=== PATIENT | female | born 1995 | race American Indian/Alaskan Native ===

== ENCOUNTER 2022-03-01 03:51 | Emergency (ER) | payer MEDICAID ==
[2022-03-01] MEDS ORDERED: SODIUM CHLORIDE 0.9% 1000 ML 1,000 ML IV ONE ×2 (04:30→04:31)
[2022-03-01 04:52] LABS: Bilirubin,Urine NEG (Negative); Blood,Urine NEG (Negative); Color,Urine Yellow (Yellow); Mucus,Urine FEW /HPF; Protein,Urine <15 mg/dL mg/dL (Negative); Urobilinogen,Urine < 2.0 mg/dL (<2.0)
[2022-03-01 04:57] LABS: HCG Qualitative,Urine Negative (Negative)
[2022-03-01 04:59] LABS: Basophils % (Auto) 0.5 % (0.0-1.8); Eosinophils % (Auto) 0.6 % (0.0-4.3); Hematocrit 34.9 % (30.3-42.9); Hemoglobin 11.6 gm/dl (10.1-14.3); Lymphocytes # (Auto) 1.4 K/mm3 (1.2-5.4); Lymphocytes % (Auto) 35.5 % (13.4-35.0); Mean Corpuscular HGB Conc 33 % (30-34); Mean Corpuscular Volume 88 fl (79-97); Monocytes # (Auto) 0.4 K/mm3 (0.0-0.8); Monocytes % (Auto) 10.2 % (0.0-7.3); Platelet Count 201 K/mm3 (140-440); Red Blood Count 3.99 M/mm3 (3.65-5.03); Red Cell Distribution Width 13.7 % (13.2-15.2)
[2022-03-01 05:08] LABS: Amphetamine Screen,Urine PRESUMPTIVE NEGATIVE; Benzodiazepines Screen,Urine PRESUMPTIVE NEGATIVE; Cannabinoid Screen,Urine PRESUMPTIVE POSITIVE; Cocaine Screen,Urine PRESUMPTIVE NEGATIVE; Methadone Screen,Urine PRESUMPTIVE NEGATIVE; Opiate Screen,Urine PRESUMPTIVE NEGATIVE
[2022-03-01 05:17] LABS: Alanine Aminotransferase 9 units/L (7-56); Blood Urea Nitrogen 7 mg/dL (7-17); Calcium 8.3 mg/dL (8.4-10.2); Hemolysis Index 20
[2022-03-01 05:29] LABS: BUN/Creatinine Ratio 10
--- NOTE | 2022-03-01 05:37 | Emergency Department Report ---
ED General Adult HPI - General Chief complaint: Seizure Stated complaint: POSSIBLE SEIZURE Time Seen by Provider: 03/01/22 04:25 Source: patient, EMS Mode of arrival: Stretcher Limitations: No Limitations - History of Present Illness Initial comments: pt has history of asthma worke up shaking , no ehad injury no incontinence no LOC , no history of seizure Severity scale (0 -10): 5 - Related Data Allergies Allergy/AdvReac Type Severity Reaction Status Date / Time No Known Allergies Allergy Unverified 03/01/22 04:19 ED Review of Systems ROS: Stated complaint: POSSIBLE SEIZURE Other details as noted in HPI Constitutional: denies: chills, fever Eyes: denies: eye pain, eye discharge, vision change ENT: denies: ear pain, throat pain Respiratory: denies: cough, shortness of breath, wheezing Cardiovascular: denies: chest pain, palpitations Endocrine: no symptoms reported Gastrointestinal: denies: abdominal pain, nausea, diarrhea Genitourinary: denies: urgency, dysuria, discharge Musculoskeletal: denies: back pain, joint swelling, arthralgia Skin: denies: rash, lesions Neurological: denies: headache, weakness, paresthesias Psychiatric: denies: anxiety, depression Hematological/Lymphatic: denies: easy bleeding, easy bruising ED Past Medical Hx - Past Medical History Previous Medical History?: No Hx Hypertension: No Hx CVA: No - Social History Smoking Status: Unknown if ever smoked Substance Use Type: None ED Physical Exam - General Limitations: No Limitations General appearance: alert, in no apparent distress - Head Head exam: Present: atraumatic, normocephalic - Eye Eye exam: Present: normal appearance - ENT ENT exam: Present: mucous membranes moist - Neck Neck exam: Present: normal inspection - Respiratory Respiratory exam: Present: normal lung sounds bilaterally. Absent: respiratory distress - Cardiovascular Cardiovascular Exam: Present: regular rate, normal rhythm. Absent: systolic murmur, diastolic murmur, rubs, gallop - GI/Abdominal GI/Abdominal exam: Present: soft, normal bowel sounds - Extremities Exam Extremities exam: Present: normal inspection - Back Exam Back exam: Present: normal inspection - Neurological Exam Neurological exam: Present: alert, oriented X3 - Psychiatric Psychiatric exam: Present: normal affect, normal mood - Skin Skin exam: Present: warm, dry, intact, normal color. Absent: rash ED Course Vital Signs 03/01/22 03/01/22 04:58 05:00 Temperature 98.1 F 98.0 F Pulse Rate 97 H 97 H Respiratory 14 15 Rate Blood Pressure 107/55 Blood Pressure 107/58 [Right] O2 Sat by Pulse 97 97 Oximetry ED Medical Decision Making - Lab Data Result diagrams: 03/01/22 04:45 03/01/22 04:45 - Radiology Data Radiology results: report reviewed Critical care attestation.: If time is entered above; I have spent that time in minutes in the direct care of this critically ill patient, excluding procedure time. ED Disposition Clinical Impression: Shaking, Observed seizure-like activity Disposition: 01 HOME / SELF CARE / HOMELESS Is pt being admited?: No Does the pt Need Aspirin: No Condition: Stable Instructions: Tremor, Seizure, Adult
[2022-03-01 06:49] VITALS: BP 101/60
== END 2022-03-01 06:57 | disposition home or self-care (01) ==
LOC: ED 03:51
DX: R56.9 Unspecified convulsions (principal); R25.1 Tremor, unspecified; Z79.899 Other long term (current) drug therapy
CPT/HCPCS: 36415; 80053; 80307; 81001; 81025; 82550; 85025; 87086; 99283; 99284

== ENCOUNTER 2022-04-12 04:42 | Emergency (ER) | payer MEDICAID ==
[2022-04-12] MEDS ORDERED: levETIRAcetam 1000 MG/NS 0.75% 1,000 MG/100 ML BAG IV ONE (09:09)
[2022-04-12] MEDS ORDERED: SODIUM CHLORIDE 0.9% 1000 ML 1,000 ML IV ONE (09:11)
--- NOTE | 2022-04-12 09:11 | Emergency Department Report ---
ED Seizure HPI - General Chief Complaint: Seizure Stated Complaint: SEIZURES Time Seen by Provider: 04/12/22 08:59 Source: patient Mode of arrival: Ambulatory Limitations: No Limitations - History of Present Illness Initial Comments: Patient is 27 years old female with history of seizure on Keppra, noncompliant with her medication. Patient presented to the ER for evaluation of seizure. Patient stated that she had 5 seizure yesterday. Patient denied any head injury or any other injuries. She also denied any fever, headache, neck pain, shortness of breath, nausea or vomiting. Patient is alert, oriented x3 with a GCS of 15. MD Complaint: seizure -: Last night Description of Episode: loss of consciousness, tonic-clonic movement, bladder incontinence, post-event confusion Seizure History: known seizure disorder Place: home Treatments Prior to Arrival: none - Related Data Allergies Allergy/AdvReac Type Severity Reaction Status Date / Time No Known Allergies Allergy Unverified 03/01/22 04:19 ED Review of Systems ROS: Stated complaint: SEIZURES Other details as noted in HPI Comment: All other systems reviewed and negative Constitutional: denies: chills, fever Respiratory: denies: cough, shortness of breath, SOB with exertion Cardiovascular: denies: chest pain, palpitations Gastrointestinal: denies: abdominal pain, nausea, vomiting, diarrhea, constipation, hematemesis, melena, hematochezia Musculoskeletal: denies: back pain Neurological: denies: headache, weakness, numbness, paresthesias ED Past Medical Hx - Past Medical History Hx Hypertension: No Hx CVA: No - Social History Smoking Status: Never Smoker ED Physical Exam - General Limitations: No Limitations General appearance: alert, in no apparent distress - Head Head exam: Present: atraumatic, normocephalic, normal inspection - Eye Eye exam: Present: normal appearance - ENT ENT exam: Present: normal exam, normal orophraynx, mucous membranes moist - Neck Neck exam: Present: normal inspection, full ROM. Absent: tenderness, meningismus - Respiratory Respiratory exam: Present: normal lung sounds bilaterally - Cardiovascular Cardiovascular Exam: Present: tachycardia - GI/Abdominal GI/Abdominal exam: Present: soft, normal bowel sounds. Absent: distended, tenderness, guarding, rebound, rigid, organomegaly, mass, bruit, pulsatile mass, hernia - Extremities Exam Extremities exam: Present: normal inspection, full ROM, normal capillary refill. Absent: tenderness, pedal edema, joint swelling, calf tenderness - Back Exam Back exam: Present: normal inspection, full ROM. Absent: CVA tenderness (R), CVA tenderness (L) - Neurological Exam Neurological exam: Present: alert, oriented X3, CN II-XII intact, normal gait, reflexes normal. Absent: motor sensory deficit - Psychiatric Psychiatric exam: Present: normal mood - Skin Skin exam: Present: warm, intact, normal color ED Course Vital Signs 04/12/22 04/12/22 04/12/22 04:46 08:55 09:17 Temperature 98.3 F Pulse Rate 129 H 147 H 136 H Respiratory 16 16 Rate Blood Pressure 114/82 Blood Pressure 137/86 [Left] O2 Sat by Pulse 100 100 Oximetry 04/12/22 04/12/22 04/12/22 09:20 09:31 09:45 Temperature 98.9 F Pulse Rate 106 H 91 H Respiratory 9 L 6 L Rate Blood Pressure 113/85 113/85 Blood Pressure [Left] O2 Sat by Pulse 99 100 Oximetry 04/12/22 04/12/22 04/12/22 10:01 10:15 10:31 Temperature Pulse Rate 89 90 91 H Respiratory 8 L 8 L 9 L Rate Blood Pressure 142/73 142/73 127/81 Blood Pressure [Left] O2 Sat by Pulse 99 99 99 Oximetry 04/12/22 10:45 Temperature Pulse Rate 88 Respiratory 10 L Rate Blood Pressure 127/81 Blood Pressure [Left] O2 Sat by Pulse 100 Oximetry ED Medical Decision Making - Lab Data Result diagrams: 04/12/22 09:23 04/12/22 09:23 - Medical Decision Making Patient is 27 years old female with history of seizure on Keppra, noncompliant with her medication. Patient presented to the ER for evaluation of seizure. Patient stated that she had 5 seizure yesterday. Patient denied any head injury or any other injuries. She also denied any fever, headache, neck pain, shortness of breath, nausea or vomiting. Patient is alert, oriented x3 with a GCS of 15. Patient received Keppra 1 g IV. No seizure activity observed in the ER. Labs reviewed and is unremarkable except positive for methamphetamine. Patient counseled about substance abuse. Patient also given prescription for Keppra and advised to follow-up with her neurologist in the next 2 to 3 days and to return to the ER if she develop any new symptoms. Critical care attestation.: If time is entered above; I have spent that time in minutes in the direct care of this critically ill patient, excluding procedure time. ED Disposition Clinical Impression: Seizure, Methamphetamine use Disposition: 01 HOME / SELF CARE / HOMELESS Is pt being admited?: No Condition: Stable Instructions: Seizure, Adult, Amphetamines Use Disorder Referrals: PRIMARY CAREMD [Primary Care Provider] - 3-5 Days PATT MARR MD [Referring] - 3-5 Days
[2022-04-12 10:47] LABS: BUN/Creatinine Ratio 8; Blood Urea Nitrogen 5 mg/dL (7-17); Calcium 9.2 mg/dL (8.4-10.2); Hemolysis Index 12
[2022-04-12 10:54] LABS: Alanine Aminotransferase 9 units/L (7-56); Albumin 4.4 g/dL (3.9-5)
[2022-04-12 10:56] LABS: Bilirubin,Direct < 0.2 mg/dL (0-0.2)
[2022-04-12 11:03] LABS: Benzodiazepines Screen,Urine Negative; Cannabinoid Screen,Urine Negative; Cocaine Screen,Urine Negative; Methadone Screen,Urine Negative; Opiate Screen,Urine Negative
[2022-04-12 11:05] LABS: RBC,Urine < 1.0 /HPF (0.0-6.0)
[2022-04-12 11:15] LABS: Amphetamine Screen,Urine Positive
[2022-04-12 11:22] LABS: Color,Urine Yellow (Yellow)
[2022-04-12 11:23] LABS: Bilirubin,Urine Negative (Negative)
[2022-04-12 11:24] LABS: Blood,Urine Moderate (Negative)
[2022-04-12 11:25] LABS: Protein,Urine <15 mg/dL mg/dL (Negative)
[2022-04-12 11:53] LABS: WBC,Urine < 1.0 /HPF (0.0-6.0)
[2022-04-12 12:18] LABS: Basophils % (Auto) 0.5 % (0.0-1.8); Eosinophils # (Auto) 0.1 K/mm3 (0.0-0.4); Eosinophils % (Auto) 0.8 % (0.0-4.3); Hematocrit 41.7 % (30.3-42.9); Hemoglobin 13.5 gm/dl (10.1-14.3); Lymphocytes # (Auto) 2.7 K/mm3 (1.2-5.4); Lymphocytes % (Auto) 37.3 % (13.4-35.0); Mean Corpuscular HGB Conc 32 % (30-34); Mean Corpuscular Volume 89 fl (79-97); Monocytes # (Auto) 0.6 K/mm3 (0.0-0.8); Monocytes % (Auto) 7.8 % (0.0-7.3); Platelet Count 219 K/mm3 (140-440); Red Blood Count 4.68 M/mm3 (3.65-5.03); Red Cell Distribution Width 14.2 % (13.2-15.2)
[2022-04-12 12:37] VITALS: BP 116/72
== END 2022-04-12 12:44 | disposition home or self-care (01) ==
LOC: ED 04:42
DX: G40.909 Epilepsy, unspecified, not intractable, without status epilepticus (principal); F15.90 Other stimulant use, unspecified, uncomplicated
CPT/HCPCS: 36415; 80048; 80076; 80307; 81001; 84703; 85025; 96374; 99283; J1953; J7030